=== PATIENT | female | born 1960 | race Caucasian/White ===

== ENCOUNTER 2017-06-20 19:55 | Emergency (ER) | payer OTHER ==
[2017-06-20 21:07] LABS: microscopic required? YES; urine erythrocyte 2+ (NEGATIVE)
[2017-06-20 21:46] VITALS: BP 150/81
== END 2017-06-20 21:46 | disposition home or self-care (01) ==
LOC: ED 19:55
PROVIDERS: Emergency Medicine
DX: N39.0 Urinary tract infection, site not specified (principal); I10 Essential (primary) hypertension; E78.5 Hyperlipidemia, unspecified
CPT/HCPCS: J1885; Q0162